=== PATIENT | female | born 1985 | race Caucasian/White ===

== ENCOUNTER 2018-06-23 13:14 | Observation (INO) | payer MEDICAID ==
[~2018-06-23] VITALS: Ht 149.9 cm; Wt 105.2 kg
[2018-06-23] MEDS ORDERED: PNV11TAB3 PO (13:41)
[2018-06-23] MEDS ORDERED: TRA200 PO (13:41)
== END 2018-06-23 15:10 | disposition home or self-care (01) ==
LOC: MLD 13:14
PROVIDERS: ADMIT Obstetrics & Gynecology; ATTEND Obstetrics & Gynecology
DX: O26.893 Other specified pregnancy related conditions, third trimester (principal); R10.2 Pelvic and perineal pain; O13.3 Gestational [pregnancy-induced] hypertension without significant proteinuria, third trimester; Z3A.38 38 weeks gestation of pregnancy
CPT/HCPCS: 59025; 76805; 81000; G0378; Q0092

== ENCOUNTER 2018-06-30 14:22 | Inpatient (IN) | payer MEDICAID ==
[~2018-06-30] VITALS: Ht 152.4 cm; Wt 106.6 kg
[~2018-06-30 14:22] MED LIST: PNV11TAB3 PO; TRA200 PO
[2018-06-30] MEDS ORDERED: OXYTOCIN 10 UNITS/ML VIAL IM SCH (15:00)
[2018-06-30] MEDS ORDERED: METHYLERGONOVINE 0.2 MG/ML AMP IM PRN (15:00)
[2018-06-30] MEDS ORDERED: CARBOPROST 250 MCG/ML AMP IM PRN (15:00)
[2018-06-30] MEDS ORDERED: PROMETHAZINE 25 MG/ML VIAL IVP PRN (15:00)
[2018-06-30] MEDS ORDERED: NALBUPHINE 10 MG/ML AMP IVP PRN ×2 (15:00→20:55)
[2018-06-30] MEDS ORDERED: MISOPROSTOL 25 MCG TAB VG SCH (15:00)
[2018-06-30] MEDS ORDERED: MISOPROSTOL 25 MCG TAB VG PRN (15:10)
[2018-06-30] MEDS ORDERED: AMPICILLIN 2,000 MG in NACL 0.9% MINI-BAG PLUS 100 ML IV SCH (15:30)
[2018-06-30 15:53] LABS: BASOPHILS % (AUTO) 0.3 % (0.0-2.0); EOSINOPHILS # (AUTO) 0.1 K/uL (0-0.4); HEMATOCRIT 35.9 % (36-48); HEMOGLOBIN 12.2 g/dL (12.0-16.0); LYMPHOCYTES # (AUTO) 1.2 K/uL (2.5-16.5); LYMPHOCYTES % (AUTO) 19.8 % (20.5-51.1); MEAN CORPUSCULAR HEMOGLOBIN 30 pg (27-31); MEAN CORPUSCULAR HGB CONC 34 g/dL (33-37); MEAN CORPUSCULAR VOLUME 88.7 fL (80-94); MONOCYTES # (AUTO) 0.6 K/uL (0.8-1.0); MONOCYTES % (AUTO) 9.3 % (1.7-9.3); NEUTROPHILS # (AUTO) 4.1 K/uL (1.8-7.7); NEUTROPHILS % (AUTO) 68.6 % (42.2-75.2); PLATELET COUNT (AUTO) 188 K/uL (140-450); RED BLOOD CELL COUNT(AUTO) 4.04 MIL/uL (4.20-5.40); RED CELL DISTRIBUTION WIDTH 14.2 % (11.6-13.7)
[2018-06-30 16:04] LABS: APPEARANCE,URINE CLEAR (CLEAR); BILIRUBIN,URINE NEGATIVE (NEGATIVE); BLOOD, URINE NEGATIVE (NEGATIVE); COLOR,URINE YELLOW (YELLOW); LEUKOCYTE ESTERASE ,URINE TRACE (NEGATIVE); NITRITE, URINE POSITIVE (NEGATIVE); UGLUCOSE NEGATIVE (NEGATIVE)
[2018-06-30 16:22] LABS: ANION GAP 14.1 (8-16); CARBON DIOXIDE 19.5 mmol/L (21-32); CREATININE 0.6 mg/dL (0.6-1.3); POTASSIUM 3.6 mmol/L (3.5-5.1)
[2018-06-30 16:24] LABS: RBC,URINE 0-5 /HPF (0-5)
[2018-06-30 16:29] LABS: ALBUMIN 2.6 g/dL (3.4-5.0); TOTAL BILIRUBIN 0.3 mg/dL (0.0-1.0)
[2018-06-30] MEDS: LACTATED RINGERS 1,000 ML IV SCH ×2 (16:45→22:58)
[2018-06-30] MEDS ORDERED: AMPICILLIN 1,000 MG in NACL 0.9% MINI-BAG PLUS 50 ML IV SCH (20:00)
[2018-06-30] MEDS ORDERED: OXYTOCIN 20 UNITS in LACTATED RINGERS 1,000 ML IV SCH (20:53)
[2018-06-30] MEDS ORDERED: MISOPROSTOL 25 MCG TAB VG ONE (20:55)
[2018-06-30] MEDS ORDERED: LABETALOL 100 MG TAB PO SCH (21:00)
[2018-06-30] MEDS ORDERED: MISOPROSTOL 25 MCG TAB ONE (21:31)
[2018-07-01] MEDS ORDERED: OXYTOCIN 10 UNITS/ML VIAL ONE (19:11)
[2018-07-01] MEDS ORDERED: NALOXONE 0.4 MG/ML VIAL ONE (21:20)
[2018-07-01] MEDS ORDERED: METHYLERGONOVINE 0.2 MG/ML AMP ONE (21:48)
[2018-07-01] MEDS ORDERED: BISACODYL 5 MG TABEC PO PRN (23:00)
[2018-07-01] MEDS ORDERED: OXYTOCIN 20 UNITS in LACTATED RINGERS 1,000 ML IV SCH (23:00)
[2018-07-01] MEDS ORDERED: BENZOCAINE/MENTHOL 20%-0.5% 60 GM CAN TP PRN (23:00)
[2018-07-01] MEDS ORDERED: ACETAMINOPHEN 325 MG TAB PO PRN (23:00)
[2018-07-01] MEDS ORDERED: MEASLES, MUMPS, AND RUBELLA 1 VIAL SQVAC PRN (23:00)
[2018-07-01] MEDS ORDERED: IBUPROFEN 600 MG TAB PO PRN (23:00)
[2018-07-01] MEDS ORDERED: DOCUSATE SODIUM 100 MG GELCAP PO PRN (23:00)
--- NOTE | 2018-07-02 06:25 | NUR ---
PATIENT HAS BEEN SCREENED AND CATEGORIZED LOW NUTRITION RISK. PATIENT WILL BE SEEN WITHIN 7 DAYS OF ADMISSION. 07/07/18 FABY VENEGAS MS, RDN
[2018-07-02 08:29] LABS: BASOPHILS % (AUTO) 0.5 % (0.0-2.0); EOSINOPHILS # (AUTO) 0.1 K/uL (0-0.4); EOSINOPHILS % (AUTO) 0.5 % (0.0-4.0); HEMATOCRIT 33.7 % (36-48); HEMOGLOBIN 11.3 g/dL (12.0-16.0); LYMPHOCYTES # (AUTO) 1.2 K/uL (2.5-16.5); LYMPHOCYTES % (AUTO) 12.2 % (20.5-51.1); MEAN CORPUSCULAR HEMOGLOBIN 30 pg (27-31); MEAN CORPUSCULAR HGB CONC 34 g/dL (33-37); MEAN CORPUSCULAR VOLUME 89.4 fL (80-94); MONOCYTES # (AUTO) 1.3 K/uL (0.8-1.0); NEUTROPHILS # (AUTO) 7.2 K/uL (1.8-7.7); NEUTROPHILS % (AUTO) 73.8 % (42.2-75.2); PLATELET COUNT (AUTO) 164 K/uL (140-450); RED BLOOD CELL COUNT(AUTO) 3.77 MIL/uL (4.20-5.40); RED CELL DISTRIBUTION WIDTH 14.1 % (11.6-13.7); WHITE BLOOD COUNT (AUTO) 9.7 K/uL (4.8-10.8)
== END 2018-07-03 16:55 | disposition home or self-care (01) | DRG 560 ==
LOC: MLD 14:22 → MFCC 07-02 02:05
PROVIDERS: ADMIT Obstetrics & Gynecology; ATTEND Obstetrics & Gynecology
PROC: 00HU33Z Insertion of Infusion Device into Spinal Canal, Percutaneous Approach (ICD-10-PCS; principal; 2018-07-01)
PROC: 3E033VJ Introduction of Other Hormone into Peripheral Vein, Percutaneous Approach (ICD-10-PCS; 2018-07-01)
PROC: 10907ZC Drainage of Amniotic Fluid, Therapeutic from Products of Conception, Via Natural or Artificial Opening (ICD-10-PCS; 2018-07-01)
PROC: 3E0P7VZ Introduction of Hormone into Female Reproductive, Via Natural or Artificial Opening (ICD-10-PCS; 2018-07-01)
PROC: 0W8NXZZ Division of Female Perineum, External Approach (ICD-10-PCS; 2018-07-01)
DX: O77.0 Labor and delivery complicated by meconium in amniotic fluid (principal); Z37.0 Single live birth; E66.01 Morbid (severe) obesity due to excess calories; O99.214 Obesity complicating childbirth; O66.0 Obstructed labor due to shoulder dystocia; O76 Abnormality in fetal heart rate and rhythm complicating labor and delivery; O13.4 Gestational [pregnancy-induced] hypertension without significant proteinuria, complicating childbirth; Z3A.39 39 weeks gestation of pregnancy
CPT/HCPCS: 36415; 76815; 80053; 81001; 85025; 86592; 86886; 86900; 86901; 87086; 90715; 99440; J2210; J2310; J2590; J7120; Q0092